=== PATIENT | male | born 1975 | race Caucasian/White ===

== ENCOUNTER 2017-01-04 20:00 | Inpatient (IN) | payer OTHER ==
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
--- NOTE | ~2017-01-04 | PN ---
Unit #: [id number] #: [id number] Patient: MARISSA SUTTON [id number] [facility] [address] [place] [address] [id number] MR#: [id number] NAME: MARISSA SUTTON ROOM: P176 Age: 41 Sex: M Admission Date: 01/05/2017 : 1975 Attending Physician: Moriah Lock M.D. Admitting Physician: Moriah Lock M.D. Primary Care Physician: Thad Farnsworth PROGRESS NOTES DATE 01/05/2017 DISCUSSION Mr. Sutton is a 41-year-old white male who was seen today and chart was reviewed and case was discussed with the staff. He has been anxious, withdrawn though has not shown any agitation, irritability or behavioral problems and has been cooperative with treatment recommendations and has been taking medications and tolerating them fairly well with no reported side effects. MENTAL STATUS EXAMINATION Young white male who was casually dressed with fair personal hygiene and appears to be in no acute distress or discomfort. He was awake and alert with impaired attention and concentration. His mood was anxious with congruent affect. His speech is slow and restricted in content. He denies any suicidal or homicidal ideations and also denies any auditory or visual hallucinations. His insight and judgement remains slightly impaired. TREATMENT PLAN 1. Will continue on his current medications and treatment protocol. Will monitor his response to the medications and make further adjustments as needed. 2. Will continue to follow up. Dictated by... Michael Connolly/eloisa TD: 01/06/2017 22:59 JOB #: [id number] Unit #: [id number] #: [id number] Patient: MARISSA SUTTON PROGRESS NOTES Page 1 of 1 X Moriah Lock MD PROGRESS NOTE
--- NOTE | ~2017-01-04 | PN ---
Unit #: [id number] #: [id number] Patient: MARISSA SUTTON [id number] [facility] [address] [place] [address] [id number] I MR#: [id number] NAME: MARISSA SUTTON ROOM: P176 Age: 41 Sex: M Admission Date: 01/05/2017 : 1975 Attending Physician: Moriah Lock M.D. Admitting Physician: Moriah Lock M.D. Primary Care Physician: Thad FarnsworthCE PROGRESS NOTES DATE January 08, 2017 DISCUSSION Mr. Sutton is a 41-year-old white male, who was seen today and chart was reviewed and the case was discussed with the staff. He reports not feeling good and still having anxiety, restlessness, shaking tremors. Meanwhile, he has been taking the medications and tolerating them fairly well with no reported side effects. MENTAL STATUS EXAMINATION Young white male, who was casually dressed with fair personal hygiene and appears to be in no acute distress or discomfort. He was awake and alert on interaction with intact orientation. His mood is anxious with a congruent affect. He denies any suicidal or homicidal ideations, and also denies any auditory or visual hallucinations. His insight and judgment remain slightly impaired. TREATMENT PLAN 1. A We will continue him on his current medications and treatment protocol, and will monitor his response to the medications, and make further adjustments as needed. 2. We will continue to followup. Dictated by... Michael Connolly/edgar TD: 01/09/2017 04:58 JOB #: [id number] Unit #: [id number] #: [id number] Patient: MARISSA SUTTON PROGRESS NOTES Page 1 of 1 X Moriah Lock MD PROGRESS NOTE
--- NOTE | ~2017-01-04 | DS ---
Unit #: [id number] #: [id number] [facility]: [facility] [id number] [facility] [address] [place] [address] [id number] I MR#: [id number] NAME: MARISSA SUTTON ROOM: P176 Age: 41 Sex: M Admission Date: 01/05/2017 : 1975 Discharge Date: 01/08/2017 Attending Physician: Moriah Lock M.D. Primary Care Physician: Shavon FarnsworthREloisa DISCHARGE SUMMARY IDENTIFYING DATA Mr. Sutton is a 41-year-old white male with history of mood disorder, who was self-referred to the hospital. DISCHARGE DIAGNOSES Psychiatric: Alcohol dependence, moderate and acute withdrawals; alcohol-induced mood disorder. Medical: Gastroesophageal reflux disease. Stressors: Mild psychosocial stressors. HISTORY OF PRESENT ILLNESS Please see initial psychiatric evaluation for details. PAST PSYCHIATRIC HISTORY Please see initial psychiatric evaluation for details. PAST MEDICAL HISTORY Please see initial psychiatric evaluation for details. HOSPITAL COURSE The patient was admitted to the adult chemical dependency and psychiatric unit at [facility] migue [facility] and was oriented to the hospital environment. Routine p.r.n. medications were initiated, and he was started on the detox protocol and was also started back on his home medication including his Zoloft and was closely monitored. He was taking the medications regularly and was tolerating them fairly well, and was able to show a decent therapeutic response with resolution of the detox symptoms and was denying any thoughts of wanting to hurt himself or anyone else, and was not seen to be a candidate for involuntary psychiatric hospitalization and as such, it was decided that he will be discharged home and will continue treatment on an outpatient basis. DISCHARGE CONDITION Stable. PROGNOSIS Fair. Dictated by... Moriah Lock M.D. IAA/modl Unit #: [id number] #: [id number] Patient: MARISSA SUTTON TD: 02/17/2017 14:18 JOB #: [id number] DISCHARGE SUMMARY Page 1 of 1 X Moriah Lock MD X DISCHARGE SUMMARY
--- NOTE | ~2017-01-04 | CO ---
Unit #: [id number] #: [id number] Patient: MARISSA MATA [id number] [place] [address] [id number] I MR#: [id number] NAME: MARISSA MATA ROOM: [facility] Age: 41 Sex: M Admission Date: 01/05/2017 : 1975 Attending Physician: Moriah Lock M.D. Primary Care Physician: Kassie Mack A.P.R.N. Consultation Date: 01/05/2017 CONSULTATION REPORT SUBJECTIVE We were asked to see Marissa about an abrasion along his forehead and injury to his right toe. He was examined during his admission H and P, and these areas were described. Please see H and P dated 01/05/2017. Dictated by... Pallavi Martin P.A.-C. for Michael Harper/sweta TD: 01/07/2017 18:18 JOB #: [id number] CONSULTATION REPORT Page 1 of 1 X Pallavi Martin CONSULTATION REPORT
--- NOTE | ~2017-01-04 | PN ---
Unit #: [id number] #: [id number] Patient: MARISSA SUTTON [id number] [facility] [address] [place] [address] [id number] MR#: [id number] NAME: MARISSA SUTTON ROOM: 76 Age: 41 Sex: M Admission Date: 01/05/2017 : 1975 Attending Physician: Moriah Lock M.D. Admitting Physician: Moriah Lock M.D. Primary Care Physician: Thad Farnsworth PROGRESS NOTES DATE January 07, 2017 DISCUSSION Mr. Sutton is a 41-year-old, white male who was seen today and chart was reviewed. His case was discussed with the staff. He has been anxious, withdrawn, and rather seclusive to himself. Meanwhile, he has been cooperative with treatment recommendations and has been taking medications and tolerating them fairly well with no reported side effects ____ distress or discomfort detox. MENTAL STATUS EXAMINATION Young white male who was casually dressed with marginal personal hygiene and appears to be in no distress or discomfort. He was awake and alert on interaction with intact orientation. His mood was anxious with a congruent affect. Speech is restricted in content. Reports having auditory and visual hallucinations. His insight and judgement remain significantly impaired. TREATMENT PLAN 1. Continue with his current medications and treatment protocol as well as the detox medications. Will monitor his response and make further adjustments as needed. 2. We will continue to follow up. Dictated by... Michael Connolly/josé luis TD: 01/08/2017 12:12 JOB #: [id number] Unit #: [id number] #: [id number] Patient: MARISSA SUTTON PROGRESS NOTES Page 1 of 1 X Moriah Lock MD PROGRESS NOTE
--- NOTE | ~2017-01-04 | HP ---
Unit #: [id number] #: [id number] Patient: MARISSA MATA [id number] [place] [address] [id number] I MR#: [id number] NAME: MARISSA MATA ROOM: P176 Age: 41 Sex: M Admission Date: 01/05/2017 : 1975 Attending Physician: Moriah Lock M.D. Admitting Physician: Moriah Lock M.D. Primary Care Physician: Kassie Mack A.P.R.N. HISTORY AND PHYSICAL HISTORY OF PRESENT ILLNESS Marissa is a 41 year old admitted to [facility] with his polysubstance abuse which includes methamphetamine and alcohol. PAST MEDICAL HISTORY 1. History of illicit substance abuse to include meth. 2. High blood pressure. 3. History of withdrawal seizures. PAST SURGICAL HISTORY Nothing reported. ALLERGIES No known drug allergies. SOCIAL HISTORY He smokes two packs per day. Drinks at least a case a beer on a daily basis. Admits to a history of illicit substance abuse to include snorting methamphetamine. FAMILY HISTORY Medically noncontributory. REVIEW OF SYSTEMS CONSTITUTIONAL: No fever or chills. HEENT: Denies any sore throat, ear pain or runny nose. CARDIOVASCULAR: Denies chest pain, irregular heart rhythm or palpitations. CHEST: Denies shortness of breath or cough. No hemoptysis. GASTROINTESTINAL: Denies nausea, vomiting, diarrhea or chronic constipation. ENDOCRINE: Denies history of increased thirst or urination. No recent significant weight loss or gain. GENITOURINARY: Denies dysuria, frequency, or hematuria. SKIN: Denies any rashes. HEMATOLOGIC: Denies history of increased bleeding or bruising. MUSCULOSKELETAL: Denies any hot, swollen joints. No generalized muscle pain. NEUROLOGIC: Denies problems with vision or speech. No frequent, severe headaches. No numbness, tingling or weakness in any extremities. Denies loss of bladder or bowel control. CURRENT MEDICATIONS Unit #: [id number] #: [id number] Patient: MARISSA MATA Detox protocol PHYSICAL EXAMINATION GENERAL: Alert, well-nourished, in no apparent distress. VITAL SIGNS: Blood pressure 130/84, heart rate 100, respirations 16, temperature 98.6. WEIGHT: 182 pounds. HEIGHT: 5'10". SKIN: Warm and dry without rash. He has a small approximately quarter size abrasion mid forehead. The area is scabbed over. He also has some swelling and bruising about his great toe. X-ray is negative for fracture or dislocation. HEENT: Normocephalic. TMs not viewed. Oral and nasal passages clear. Conjunctivae clear. Pupils equal, round and reactive to light and accommodation. Extraocular movements intact. NECK: Supple without lymphadenopathy or thyromegaly. HEART: Regular rate and rhythm without murmur. LUNGS: Clear. ABDOMEN: Soft, nontender. : Not done. EXTREMITIES: No evidence of cyanosis, clubbing or edema. Moves all extremities without focal deficit. NEUROLOGICAL: Grossly within normal limits. Cranial Nerves: II: Visual thorpe are intact. III, IV AND : Extraocular movements are intact. Pupils are equal, round and reactive to light. V: Facial sensation is grossly normal. VII: Facial movements and expression are normal. VIII: Auditory acuity grossly intact. IX, X: Uvula is midline. Phonation is normal. XI: Patient shrugs shoulders and turns head normally. XII: Tongue protrudes in the midline. Sensory and Motor Function: Sensory and motor sensation is grossly normal. Motor: moves all extremities well. Coordination: Gait is normal. Deep Tendon Reflexes: Intact. IMPRESSION Psychiatric admission RECOMMENDATIONS PSYCHIATRIC: Per psychiatrist. MEDICAL: I see no contraindications to participating in facility's activities. MEDICAL PROGNOSIS Good. MEDICAL CONDITION Stable. Dictated by... Pallavi Martin P.A.-C. for Michael Harper/rola Unit #: [id number] #: [id number] Patient: MARISSA MATA TD: 01/05/2017 23:56 JOB #: [id number] HISTORY AND PHYSICAL Page 1 of 1 X Pallavi Martin HISTORY AND PHYSICAL
[~2017-01-04 20:00] MED LIST: AMITRYPTYLINE PO; CELEXA PO; DESYREL50 MG PO; DICLOFENAC PO; NEURONTIN PO; NIFEDIPINE ER30 MG PO; NO MEDICATIONS; NORCO1 TAB 10/3 PO; NORVASC PO; PANTOPRAZOLE SO40 MG PO; PRILOSEC PO; TRAMADOL PO; TYLENOL #3 PO; VALTREX500 MG PO; VOLTAREN75 MG PO; ZOFRAN PO; ZOLOFT100 MG PO
== END 2017-01-08 14:31 | DRG 897 ==
LOC: P1E 01-05 11:29
PROC: HZ2ZZZZ Detoxification Services for Substance Abuse Treatment (ICD-10-PCS; principal; 2017-01-05)
DX: F10.239 Alcohol dependence with withdrawal, unspecified (principal); F14.20 Cocaine dependence, uncomplicated; R45.851 Suicidal ideations; F33.1 Major depressive disorder, recurrent, moderate; F15.20 Other stimulant dependence, uncomplicated; I10 Essential (primary) hypertension; F17.210 Nicotine dependence, cigarettes, uncomplicated; Z56.0 Unemployment, unspecified; Z91.14 Patient's other noncompliance with medication regimen

== ENCOUNTER 2017-01-04 23:00 | Emergency (ER) | payer OTHER ==
--- NOTE | ~2017-01-04 | CT71 ---
[facility] A Service of [facility] RADIOLOGY TEXT RESULTS PATIENT: MARISSA MATA LOCATION: [facility] : [birth year] UNIT #: [id number] AGE: [address]: Jorge Garcia MD SEX: M ORDER DR: [id number] [address] [place], [place] [address] [id number] E MR#: [id number] Acc #: [id number] NAME: MARISSA MATA : 1975 SEX: M STUDY DATE/TIME: 01/05/2017 0:33 UNIT: [facility] ROOM: STUDY DESCRIPTION: CT Head Wo Contrast Attending Physician: Jorge Garcia M.D. Ordering Physician: Netta Clark M.D. Primary Care Physician: Kassie Mack A.P.R.N. MEDICAL IMAGING REPORT This report is preliminary unless electronic signature is present EXAM CT scan of the head without contrast INDICTIONS Trauma to forehead from concrete, injury happened last night now has persistent headache. . Comparison made with 10/13/15 FINDINGS TECHNIQUE Axial noncontrast images were obtained from the skull base to the vertex. This CT exam was performed with one or more of the following radiation dose reduction techniques: automatic exposure control, adjustment of mA and/or kV according to patient size, and iterative reconstruction. FINDINGS Ventricular size and configuration are normal. There is no evidence of acute infarct or hemorrhage. There are no extraaxial fluid collections. No mass lesion or mass effect is seen. There are no skull fractures. IMPRESSION Normal noncontrast head CT. Dictated by... Seth Malagon M.D. [facility] A Service of [facility] RADIOLOGY TEXT RESULTS PATIENT: MARISSA MATA LOCATION: [facility] : 79 UNIT #: [id number] AGE: [address]: Jorge Garcia MD SEX: M ORDER DR: THIS IS AN ELECTRONICALLY VERIFIED REPORT Seth Malagon M.D. at 01/05/2017 12:38 PM Bozena TD: 01/05/2017 09:41 JOB #: [id number] MEDICAL IMAGING REPORT Page 1 of 1 COPY
--- NOTE | ~2017-01-04 | CR127 ---
[facility] A Service of [facility] RADIOLOGY TEXT RESULTS PATIENT: MARISSA MATA LOCATION: [facility] : 77 UNIT #: [id number] AGE: [address]: Jorge Garcia MD SEX: M ORDER DR: [id number] [facility] [address] [facility]. [place], [place] [address] [id number] E MR#: [id number] Acc #: [id number] NAME: MARISSA MATA : 1975 SEX: M STUDY DATE/TIME: 01/05/2017 0:22 UNIT: [facility] ROOM: STUDY DESCRIPTION: CR Foot Complete Min 3 View Rt Attending Physician: Jorge Garcia M.D. Ordering Physician: Netta Clark M.D. Primary Care Physician: Kassie Mack A.P.R.N. MEDICAL IMAGING REPORT This report is preliminary unless electronic signature is present EXAM Right foot HISTORY Foot pain after kicking garage today. FINDINGS The tarsal, metatarsal, and phalangeal elements are all anatomically normal in position and alignment. There are no articular defects. No fractures or radiopaque foreign bodies in the soft tissues are apparent. IMPRESSION Normal foot. Dictated by... Seth Malagon M.D. THIS IS AN ELECTRONICALLY VERIFIED REPORT Seth Malagon M.D. at 01/05/2017 12:38 PM ALBINO/karen TD: 01/05/2017 09:35 JOB #: [id number] MEDICAL IMAGING REPORT Page 1 of 1 COPY
[2017-01-05 01:00] LABS: BASOPHIL% 0.3 % (0-2.5); EOSINOPHIL# 0.1 X10e3 (0-0.7); EOSINOPHIL% 1.4 % (0.0-7.0); HEMATOCRIT 49.4 % (38.0-50.0); HEMOGLOBIN 16.2 gm/dL (13.0-16.0); LYMPHOCYTE% 35.8 % (17.0-45.0); MEAN CELL VOLUME 96.4 FL (83-96); MEAN CORPUSCULAR HEMOGLOBIN 31.7 PG (28-34); MEAN CORPUSCULAR HGB CONC 32.8 g/dL (30-36); MEAN PLATELET VOLUME 6.8 FL (6.5-11.5); MONOCYTE# 0.5 X10e3 (0-1.0); MONOCYTE% 5.7 % (3.0-12.0); NEUTROPHIL# 4.7 X10e3 (1.5-7.1); NEUTROPHIL% 56.8 % (40-75); PLATELET COUNT 299 X10e3 (140-420); RED BLOOD COUNT 5.12 X10e (3.90-5.60); RED CELL DISTRIBUTION WIDTH 15.9 % (11.0-15.5); WHITE BLOOD COUNT 8.3 X10e3 (4.0-10.5)
[2017-01-05 01:01] LABS: DIFF IND NO
[2017-01-05 01:20] LABS: ALBUMIN SERUM 4.3 g/dL (3.5-5.0); BILIRUBIN, DIRECT 0.1 mg/dL (0.0-0.2); BILIRUBIN,TOTAL 1.1 mg/dL (0.2-2.0); CALCIUM SERUM 8.4 mg/dL (8.4-10.2); CREATININE SERUM 0.6 mg/dL (0.6-1.4); GLOM FILT RATE Estimated 126.7 mL/min (>60); POTASSIUM 3.8 mmol/L (3.5-5.1); PROTEIN TOTAL SERUM 6.9 g/dL (6.0-8.3)
[2017-01-05 05:34] LABS: AMPHETAMINE NEG (NEG); BARBITURATES NEG (NEG); BENZODIAZEPINES NEG (NEG); COCAINE NEG (NEG); MARIJUANA POS (NEG); OPIATES NEG (NEG); TRICYCLIC ANTIDEPRESSANTS NEG (NEG); U METHADONE NEG (NEG)
== END 2017-01-05 10:26 | disposition short-term general hospital (02) ==
LOC: CED 23:00
PROVIDERS: Student in an Organized Health Care Education/Training Program
DX: S09.90XA Unspecified injury of head, initial encounter (principal); F10.129 Alcohol abuse with intoxication, unspecified; S90.31XA Contusion of right foot, initial encounter; F31.9 Bipolar disorder, unspecified; B19.20 Unspecified viral hepatitis C without hepatic coma; F17.210 Nicotine dependence, cigarettes, uncomplicated; I10 Essential (primary) hypertension; F20.9 Schizophrenia, unspecified; Z79.899 Other long term (current) drug therapy; X58.XXXA Exposure to other specified factors, initial encounter
CPT/HCPCS: 36415; 70450; 73630; 80048; 80076; 80307; 85025; 96360; 99285; G0480

== ENCOUNTER 2017-02-22 19:53 | Emergency (ER) | payer OTHER ==
--- NOTE | ~2017-02-22 | CT71 ---
[facility] A Service of [facility] RADIOLOGY TEXT RESULTS PATIENT: MARISSA MATA LOCATION: [facility] : 79 UNIT #: [id number] AGE: [address]: Alex Hayden MD SEX: M ORDER DR: [id number] [facility] [address] [facility]. [place], [place] [address] [id number] E MR#: [id number] Acc #: [id number] NAME: MARISSA MATA : 1975 SEX: M STUDY DATE/TIME: 02/22/2017 21:48 UNIT: [facility] ROOM: STUDY DESCRIPTION: CT Head Wo Contrast Attending Physician: Jorge Garcia M.D. Ordering Physician: Jorge Garcia M.D. Primary Care Physician: Kassie Mack A.P.R.N. MEDICAL IMAGING REPORT This report is preliminary unless electronic signature is present EXAM Noncontrast CT head. Date: 02/22/2017 HISTORY 41-year-old male with seizure. Headache today. Hypertension. COMPARISON Noncontrast CT head 01/05/2017. This CT exam was performed with one or more of the following radiation dose reduction techniques: automatic exposure control, adjustment of mA and/or kV according to patient size, and iterative reconstruction. FINDINGS No acute intracranial hemorrhage, mass lesion, mass effect, midline shift is seen. No CT evidence of acute or evolving infarct. Ventricular configuration is within normal limits. Paranasal sinuses and mastoid air cells are clear. 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 IMPRESSION Normal noncontrast CT head. Dictated by... Rohcelle Perez M.D. THIS IS AN ELECTRONICALLY VERIFIED REPORT Rochelle Perez M.D. at 02/23/2017 9:59 PM ELBA/maddie TD: 02/23/2017 08:49 [facility] A Service of [facility] RADIOLOGY TEXT RESULTS PATIENT: MARISSA MATA LOCATION: [facility] : 77 UNIT #: [id number] AGE: [address]: Alex Hayden MD SEX: M ORDER DR: JOB #: [id number] MEDICAL IMAGING REPORT Page 1 of 1 COPY
--- NOTE | ~2017-02-22 | EKG ---
PATIENT: MARISSA MATA UNIT #: [id number] Ventricular Rate: 95 BPM Atrial Rate: 95 BPM P-R Interval: 138 ms QRS Duration: 92 ms Q-T Interval: 352 ms QTC Calculation(Bezet): 442 ms P [place]: 62 degrees Calculated R [place]: 47 degrees Calculated T [place]: 53 degrees Diagnosis Line: Normal sinus rhythm Diagnosis Line: Normal ECG Diagnosis Line: When compared with ECG of 25-JUL-2016 13:41, Diagnosis Line: No significant change was found Diagnosis Line: Confirmed by JOYCE SMITH MD ([id number]) on 02/25/2017 Diagnosis Line: 7:53:00 AM INTERPRETING MD: LUIS RODRIGUEZ
[2017-02-22 20:57] LABS: BASOPHIL% 0.4 % (0-2.5); EOSINOPHIL# 0.3 X10e3 (0-0.7); EOSINOPHIL% 2.8 % (0.0-7.0); HEMATOCRIT 43.8 % (38.0-50.0); HEMOGLOBIN 14.9 gm/dL (13.0-16.0); LYMPHOCYTE# 5.1 X10e3 (1.0-3.5); LYMPHOCYTE% 47.9 % (17.0-45.0); MEAN CELL VOLUME 91.9 FL (83-96); MEAN CORPUSCULAR HEMOGLOBIN 31.2 PG (28-34); MEAN CORPUSCULAR HGB CONC 33.9 g/dL (30-36); MEAN PLATELET VOLUME 6.6 FL (6.5-11.5); MONOCYTE# 0.6 X10e3 (0-1.0); NEUTROPHIL# 4.6 X10e3 (1.5-7.1); NEUTROPHIL% 42.9 % (40-75); PLATELET COUNT 307 X10e3 (140-420); RED BLOOD COUNT 4.77 X10e (3.90-5.60); RED CELL DISTRIBUTION WIDTH 13.9 % (11.0-15.5); WHITE BLOOD COUNT 10.7 X10e3 (4.0-10.5)
[2017-02-22 20:59] LABS: DIFF IND NO
[2017-02-22 21:10] LABS: POC - TROPONIN <0.05 ng/mL (<=0.05)
[2017-02-22 21:19] LABS: ALBUMIN SERUM 4.4 g/dL (3.5-5.0); BILIRUBIN,TOTAL 0.6 mg/dL (0.2-2.0); BUN/CREATININE RATIO 13.33; CALCIUM SERUM 8.8 mg/dL (8.4-10.2); CREATININE SERUM 0.6 mg/dL (0.6-1.4); GLOM FILT RATE Estimated 126.7 mL/min (>60); POTASSIUM 3.5 mmol/L (3.5-5.1); PROTEIN TOTAL SERUM 7.4 g/dL (6.0-8.3)
[2017-02-22 21:26] LABS: AMPHETAMINE NEG (NEG); BARBITURATES NEG (NEG); BENZODIAZEPINES NEG (NEG); COCAINE NEG (NEG); MARIJUANA NEG (NEG); OPIATES NEG (NEG); TRICYCLIC ANTIDEPRESSANTS NEG (NEG); U METHADONE NEG (NEG)
== END 2017-02-23 15:50 ==
LOC: CED 19:53
PROVIDERS: Emergency Medicine
DX: G40.909 Epilepsy, unspecified, not intractable, without status epilepticus (principal); F10.129 Alcohol abuse with intoxication, unspecified; F19.10 Other psychoactive substance abuse, uncomplicated; F17.200 Nicotine dependence, unspecified, uncomplicated
CPT/HCPCS: 36415; 70450; 80053; 80307; 82553; 84484; 85025; 93005; 96361; 96365; 96375; 99285; G0480; J1885; J1953; J2060

== ENCOUNTER 2017-02-23 01:00 | Inpatient (IN) | payer OTHER ==
[~2017-02-23] VITALS: Ht 172.7 cm; Wt 91.6 kg
--- NOTE | ~2017-02-23 | HP ---
Unit #: [id number] #: [id number] Patient: MARISSA MATA [id number] [facility] [address] [place] [address] [id number] I MR#: [id number] NAME: MARISSA MATA ROOM: [facility] Age: 42 Sex: M Admission Date: 02/23/2017 : 1975 Attending Physician: Moriah Lock M.D. Admitting Physician: Moriah Lock M.D. Primary Care Physician: Kassie Mack A.P.R.N. HISTORY AND PHYSICAL HISTORY OF PRESENT ILLNESS Marissa is a 42 year old admitted to [facility] because of his continued abuse of alcohol. He has had other admissions to this facility for the same. PAST MEDICAL HISTORY 1. Long history of illicit substance abuse to include methamphetamine. 2. History of alcohol abuse. 3. History of withdrawal seizures. 4. High blood pressure. PAST SURGICAL HISTORY Nothing reported. ALLERGIES No known drug allergies. SOCIAL HISTORY Smokes 2 packs per day. Drinks at least a case of beer on a daily basis. Has a history of illicit drug use, but denies anything currently. FAMILY HISTORY Medically noncontributory. REVIEW OF SYSTEMS CONSTITUTIONAL: No fever or chills. HEENT: Denies any sore throat, ear pain or runny nose. CARDIOVASCULAR: Denies chest pain, irregular heart rhythm or palpitations. CHEST: Denies shortness of breath or cough. No hemoptysis. GASTROINTESTINAL: Denies nausea, vomiting, diarrhea or chronic constipation. ENDOCRINE: Denies history of increased thirst or urination. No recent significant weight loss or gain. GENITOURINARY: Denies dysuria, frequency, or hematuria. SKIN: Denies any rashes. HEMATOLOGIC: Denies history of increased bleeding or bruising. MUSCULOSKELETAL: Denies any hot, swollen joints. No generalized muscle pain. NEUROLOGIC: Denies problems with vision or speech. No frequent, severe headaches. No numbness, tingling or weakness in any extremities. Denies loss of bladder or bowel control. CURRENT MEDICATIONS 1. Detox protocol. Unit #: [id number] #: [id number] Patient: MARISSA MATA 2. Norvasc 5 mg q. day. PHYSICAL EXAMINATION GENERAL: Alert, well nourished. No apparent distress. VITAL SIGNS: Blood pressure 115/88, heart rate 84, respirations 16, and temperature 98.6. WEIGHT: 202. HEIGHT: 5 feet 8 inches. SKIN: Warm and dry without rash or lesion. HEENT: Normocephalic. TMs not viewed. Oral and nasal passages clear. Conjunctivae clear. PERRLA. EOMs intact. NECK: Supple without lymphadenopathy or thyromegaly. HEART: Regular rate and rhythm without murmur. LUNGS: Clear. ABDOMEN: Soft, nontender. : Not done. EXTREMITIES: No evidence of cyanosis, clubbing or edema. Moves all without focal deficit. NEUROLOGICAL: Grossly within normal limits. Cranial Nerves: II: Visual thorpe are intact. III, IV AND : Extraocular movements are intact. Pupils are equal, round and reactive to light. V: Facial sensation is grossly normal. VII: Facial movements and expression are normal. VIII: Auditory acuity grossly intact. IX, X: Uvula is midline. Phonation is normal. XI: Patient shrugs shoulders and turns head normally. XII: Tongue protrudes in the midline. Sensory and Motor Function: Sensory and motor sensation is grossly normal. Motor: moves all extremities well. Coordination: Gait is normal. Deep Tendon Reflexes: Intact. IMPRESSION Psychiatric admission. RECOMMENDATIONS PSYCHIATRIC: Per psychiatrist. MEDICAL: I see no contraindication to participate in this facility's activities. MEDICAL PROGNOSIS Good. MEDICAL CONDITION Stable. Dictated by... Pallavi Martin P.A.-C. for Michael Harper/nafisa TD: 02/24/2017 11:56 JOB #: [id number] Unit #: [id number] #: [id number] Patient: MARISSA MATA HISTORY AND PHYSICAL Page 1 of 1 X Pallavi Martin HISTORY AND PHYSICAL
--- NOTE | ~2017-02-23 | PN ---
Unit #: [id number] #: [id number] Patient: MARISSA SUTTON [id number] [facility] [address] [place] [address] [id number] MR#: [id number] NAME: MARISSA SUTTON ROOM: [facility] Age: 42 Sex: M Admission Date: 02/23/2017 : 1975 Attending Physician: Moriah Lock M.D. Admitting Physician: Moriah Lock M.D. Primary Care Physician: Thad Farnsworth PROGRESS NOTES DATE 02/24/2017 DISCUSSION Mr. Sutton is a 42-year-old, white male who was seen today and chart was reviewed and case was discussed with the staff. He has been anxious, withdrawn and in distress and discomfort as he was laying in his bed and he reports not feeling good and appears to be going through some detox and also reports persistent depressive symptoms with feelings of hopelessness and helplessness. Meanwhile, he has been taking medications and tolerating them fairly well. MENTAL STATUS EXAM Young white male who was casually dressed with fair personal hygiene, appears to be in no acute distress or discomfort. He was awake and alert on interaction with intact orientation. His mood was anxious with congruent affect. He denies any suicidal or homicidal ideation. His insight and judgement remains slightly impaired. TREATMENT PLAN 1. We will continue him on his current medications and treatment protocol. We will monitor his response to the medication and make further adjustments as needed. 2. We will continue to follow up. Dictated by... Michael Connolly/rola TD: 02/24/2017 21:43 JOB #: [id number] Unit #: [id number] #: [id number] Patient: MARISSA SUTTON PROGRESS NOTES Page 1 of 1 X Moriah Lock MD X PROGRESS NOTE
--- NOTE | ~2017-02-23 | PN ---
Unit #: [id number] #: [id number] Patient: MARISSA SUTTON [id number] [facility] [address] [place] [address] [id number] MR#: [id number] NAME: MARISSA SUTTON ROOM: [facility] Age: 42 Sex: M Admission Date: 02/23/2017 : 1975 Attending Physician: Moriah Lock M.D. Admitting Physician: Moriah Lock M.D. Primary Care Physician: Thad Farnsworth PROGRESS NOTES DATE 02/25/2017 DISCUSSION Mr. Sutton is a 42-year-old white male who was seen today and chart was reviewed and case was discussed with the staff. He has been anxious, withdrawn and rather seclusive to himself though reports still having some auditory and visual hallucinations. Meanwhile, he has been taking medications and tolerating them fairly well with no reported side effects. MENTAL STATUS EXAMINATION Middle-aged white male who was casually dressed with fair personal hygiene and appears to be in no acute distress or discomfort. He was awake and alert on interaction with intact orientation. His mood was anxious with congruent affect. His speech is slow and goal-directed. He denies any suicidal or homicidal ideations. His insight and judgement remains slightly impaired. TREATMENT PLAN 1. We will continue on his current medications and treatment protocol. Will monitor his response to the medications and ____ as needed. 2. Will continue to follow up. Dictated by... Michael Connolly/eloisa TD: 02/25/2017 17:57 JOB #: [id number] Unit #: [id number] #: [id number] Patient: MARISSA SUTTON PROGRESS NOTES Page 1 of 1 X Moriah Lock MD PROGRESS NOTE
--- NOTE | ~2017-02-23 | DS ---
Unit #: [id number] #: [id number] Patient: MARISSA MATA [id number] [place] [address] [id number] I MR#: [id number] NAME: MARISSA MATA ROOM: 79 Age: 42 Sex: M Admission Date: 02/23/2017 : 1975 Discharge Date: 02/27/2017 Attending Physician: Moriah Lock M.D. Primary Care Physician: Shavon FarnsworthREloisa DISCHARGE SUMMARY IDENTIFICATION DATA Mr. Mata is a 42-year-old single white male who is a resident of [place], [place], and he is known to us from previous encounter and was recently discharged from my care and was self-referred to the hospital. Upon presentation, he stated "I have been drinking, and I have withdrawal seizures." DISCHARGE DIAGNOSES PSYCHIATRIC: Alcohol dependence, moderate, in acute withdrawal. Alcohol-induced mood disorder. (1) __ hypertension. History of withdrawal seizures. STRESSORS: Mild psychosocial stressors. HISTORY OF PRESENT ILLNESS Same as in initial psychiatric evaluation. PAST PSYCHIATRIC HISTORY Same as in initial psychiatric evaluation. PAST MEDICAL HISTORY Same as in initial psychiatric evaluation. HOSPITAL COURSE The patient was admitted to the adult chemical dependence unit at [facility] and was oriented to the hospital environment. Routine p.r.n. medications were initiated, and he was started back on his home medications. Medications were adjusted, and he was closely monitored. Alcohol detox protocol was initiated. However, he was still having some persistent auditory or visual hallucinations. Zyprexa was started at 10 mg at bedtime, and Zoloft was maintained with good tolerability and therapeutic response. However, it was decided that he will be started, and we will continue treatment on outpatient basis. DISCHARGE MEDICATIONS 1. Zyprexa 10 mg at bedtime for psychosis. 2. Zoloft 150 mg in the morning for depression. CONDITION AT DISCHARGE Stable. PROGNOSIS Fair. Unit #: [id number] #: [id number] Patient: MARISSA MATA Dictated by... Moriah Lock M.D. IAA/zairag TD: 02/27/2017 06:47 JOB #: [id number] DISCHARGE SUMMARY Page 1 of 1 X Moriah Lock MD DISCHARGE SUMMARY
--- NOTE | ~2017-02-23 | PA ---
Unit #: [id number] #: [id number] Patient: MARISSA SUTTON [id number] [facility] [place] [address] [id number] I MR#: [id number] NAME: MARISSA SUTTON ROOM: P179 Age: 42 Sex: M Admission Date: 02/23/2017 : 1975 Date of Assessment: 02/23/2017 Attending Physician: Moriah Lock M.D. Admitting Physician: Moriah Lock M.D. Primary Care Physician: Kassie Mack A.P.R.N. PSYCHIATRIC ASSESSMENT DATE OF SERVICE 02/23/2017. IDENTIFYING DATA Mr. Sutton is a 41-year-old single white male, who is a resident of [place], [place], and is known to us from previous encounter, was recently discharged from my care and was transferred back to us as a transfer from [facility] on a voluntary basis. CHIEF COMPLAINT "I've been drinking and I had withdrawal seizures." HISTORY OF PRESENT ILLNESS Mr. Sutton is a 41-year-old white male with history of alcohol dependence, mood disorder, who was taken to the emergency room after having withdrawal seizures and reports that he drank 13 to 14 beers earlier that day and initially upon presentation to the emergency room, he had a blood alcohol level of 0.218 and reports that he has been drinking 30 beers on daily basis and denies any other substance abuse. The patient does report increasing depression, anxiety, irritability, restlessness, significant consequences because of addiction and inability to function; however, he denied any suicidal ideations, intent, or plan. He was medically cleared and then transferred to us. SUBSTANCE ABUSE HISTORY The patient reports extensive history of substance abuse including cannabis, cocaine, and methamphetamine, though he reports alcohol to be his drug of choice and has been drinking since he was 17 years old and currently has been drinking 30 beers on daily basis. PAST PSYCHIATRIC HISTORY The patient has had history of multiple inpatient psychiatric and chemical dependency treatments including being at [facility], [facility], and review of the medical records indicate currently he is not active in any treatment program, is not seeing a psychiatrist, not taking any psychotropic medications. PAST MEDICAL HISTORY Hypertension and history of withdrawal seizures. ALLERGIES No known medication allergies. Unit #: [id number] #: [id number] Patient: MARISSA SUTTON PERSONAL AND SOCIAL HISTORY A 41-yea-old white male, who reports that he is single, unemployed, and essentially homeless and has poor social support system. MENTAL STATUS EXAMINATION Young white male who was casually dressed with fair personal hygiene, appears to be in no acute distress or discomfort. He was awake and alert on interaction with intact orientation to time, place, and person. His mood was anxious and depressed with a congruent affect. His speech was slow and restricted in content. His thought processes were disorganized with some looseness of associations. He denies any suicidal or homicidal ideations and also denies any auditory or visual hallucinations. His insight and judgment remain significantly impaired. DIAGNOSTIC IMPRESSION Psychiatric: Alcohol dependence, moderate and acute withdrawals; alcohol-induced mood disorder. Medical: Hypertension and history of withdrawal seizures. Stressors: Moderate psychosocial stressors. TREATMENT PLAN 1. The patient has presented with history of mood disorder and substance abuse and has been decompensating and will need inpatient hospitalization for detoxification, safety, and stabilization. We will start him back on his home medications. We will also initiate detox protocol. 2. Supportive therapy was provided to the patient. 3. Safe, structured, and nourishing environment will be provided. ESTIMATED LENGTH OF STAY 5 to 7 days. ABILITY TO HELP SELF Limited. WILLINGNESS TO HELP SELF The patient appears to be willing to help self. STRENGTHS 1. Communicative. 2. Cooperative. PROBLEMS 1. Chronic chemical dependency. 2. Chronic dysphoric symptoms. 3. Poor social support system. DISCHARGE CRITERIA This will be contingent upon the patient's ability to go through detox without having any significant withdrawal symptoms as well as his ability to stay safe to himself, particularly after discharge from the hospital. Dictated by... Michael Connolly/sweta TD: 02/24/2017 06:35 Unit #: [id number] #: [id number] Patient: MARISSA SUTTON JOB #: [id number] PSYCHIATRIC ASSESSMENT Page 1 of 1 X Moriah Lock MD X PSYCHIATRIC ASSESSMENT
--- NOTE | ~2017-02-23 | PN ---
Unit #: [id number] #: [id number] Patient: MARISSA SUTTON [id number] [facility] [address] [place] [address] [id number] I MR#: [id number] NAME: MARISSA SUTTON ROOM: [facility] Age: 42 Sex: M Admission Date: 02/23/2017 : 1975 Attending Physician: Moriah Lock M.D. Admitting Physician: Moriah Lock M.D. Primary Care Physician: Thad Farnsworth PROGRESS NOTES DATE OF SERVICE 02/26/2017 DISCUSSION Mr. Sutton is a 42-year-old white male who was seen today. Chart was reviewed and case was discussed with the staff. He has been anxious, withdrawn, and rather seclusive to himself. Meanwhile, he has been cooperative with the treatment recommendations and has been taking the medications and tolerating them fairly well with no reported side effects. MENTAL STATUS EXAMINATION Middle-aged white male who is casually dressed with fair personal hygiene, appears to be in no acute distress or discomfort. The patient was awake and alert on interaction with intact orientation. His mood is anxious with congruent affect. Speech is slow and goal-directed. He denies any suicidal or homicidal ideations and also denies any auditory or visual hallucinations. His insight and judgment remain slightly impaired. TREATMENT PLAN 1. We will continue him on his current medications and treatment protocol. We will monitor his response to the medications and make further adjustments as needed. 2. We will continue to follow up. Dictated by... Michael Connolly/nafisa TD: 02/26/2017 08:45 JOB #: [id number] Unit #: [id number] #: [id number] Patient: MARISSA SUTTON PROGRESS NOTES Page 1 of 1 X Moriah Lock MD PROGRESS NOTE
[2017-02-24 09:48] LABS: BASOPHIL% 0.4 % (0-2.5); EOSINOPHIL# 0.3 X10e3 (0-0.7); EOSINOPHIL% 3.9 % (0.0-7.0); HEMATOCRIT 43.4 % (38.0-50.0); HEMOGLOBIN 14.6 gm/dL (13.0-16.0); LYMPHOCYTE# 3.1 X10e3 (1.0-3.5); LYMPHOCYTE% 39.7 % (17.0-45.0); MEAN CELL VOLUME 93.3 FL (83-96); MEAN CORPUSCULAR HEMOGLOBIN 31.3 PG (28-34); MEAN CORPUSCULAR HGB CONC 33.6 g/dL (30-36); MONOCYTE# 0.5 X10e3 (0-1.0); MONOCYTE% 7.1 % (3.0-12.0); NEUTROPHIL# 3.8 X10e3 (1.5-7.1); NEUTROPHIL% 48.9 % (40-75); PLATELET COUNT 284 X10e3 (140-420); RED BLOOD COUNT 4.65 X10e (3.90-5.60); RED CELL DISTRIBUTION WIDTH 14.5 % (11.0-15.5); WHITE BLOOD COUNT 7.8 X10e3 (4.0-10.5)
[2017-02-24 09:56] LABS: DIFF IND NO
[2017-02-24 10:04] LABS: ALBUMIN SERUM 3.7 g/dL (3.5-5.0); BILIRUBIN,TOTAL 0.6 mg/dL (0.2-2.0); BUN/CREATININE RATIO 18.33; CALCIUM SERUM 8.9 mg/dL (8.4-10.2); CREATININE SERUM 0.6 mg/dL (0.6-1.4); GLOM FILT RATE Estimated 125.8 mL/min (>60); POTASSIUM 4.3 mmol/L (3.5-5.1)
[2017-02-25 12:37] LABS: URINE APPEARANCE CLEAR; URINE BILIRUBIN NEG (NEG); URINE BLOOD NEG (NEG); URINE COLOR DK YELLOW; URINE GLUCOSE NEG (NEG); URINE KETONE NEG (NEG); URINE LEUKOCYTE ESTERASE NEG (NEG); URINE NITRATE NEG (NEG); URINE PROTEIN NEG (NEG); URINE SPECIFIC GRAVITY 1.013 (1.003-1.035); URINE UROBILINOGEN 0.2 MG/DL (NEG)
[2017-02-25 12:52] LABS: AMPHETAMINE NEG (NEG); BARBITURATES NEG (NEG); BENZODIAZEPINES POS (NEG); COCAINE NEG (NEG); MARIJUANA NEG (NEG); OPIATES NEG (NEG); TRICYCLIC ANTIDEPRESSANTS NEG (NEG); U METHADONE NEG (NEG)
== END 2017-02-27 08:06 | DRG 897 ==
LOC: P1E 12:43
PROVIDERS: Psychiatry & Neurology Psychiatry
PROC: HZ2ZZZZ Detoxification Services for Substance Abuse Treatment (ICD-10-PCS; principal; 2017-02-23)
DX: F10.230 Alcohol dependence with withdrawal, uncomplicated (principal); F10.24 Alcohol dependence with alcohol-induced mood disorder; I10 Essential (primary) hypertension; Z59.0 Homelessness; F17.200 Nicotine dependence, unspecified, uncomplicated; Y90.7 Blood alcohol level of 200-239 mg/100 ml
CPT/HCPCS: 80053; 80307; 81003; 85025; 86592

== ENCOUNTER 2017-03-07 00:16 | Emergency (ER) | payer OTHER ==
[~2017-03-07] VITALS: Ht 172.7 cm; Wt 91.6 kg
[2017-03-07 02:07] LABS: BASOPHIL# 0.1 X10e3 (0-0.3); BASOPHIL% 0.6 % (0-2.5); EOSINOPHIL# 0.2 X10e3 (0-0.7); EOSINOPHIL% 1.8 % (0.0-7.0); LYMPHOCYTE# 3.9 X10e3 (1.0-3.5); LYMPHOCYTE% 36.7 % (17.0-45.0); MEAN CELL VOLUME 92.1 FL (83-96); MEAN CORPUSCULAR HEMOGLOBIN 31.6 PG (28-34); MEAN CORPUSCULAR HGB CONC 34.3 g/dL (30-36); MEAN PLATELET VOLUME 6.4 FL (6.5-11.5); MONOCYTE# 0.5 X10e3 (0-1.0); MONOCYTE% 5.2 % (3.0-12.0); NEUTROPHIL# 5.9 X10e3 (1.5-7.1); NEUTROPHIL% 55.7 % (40-75); PLATELET COUNT 341 X10e3 (140-420); RED BLOOD COUNT 4.45 X10e (3.90-5.60); RED CELL DISTRIBUTION WIDTH 14.5 % (11.0-15.5); WHITE BLOOD COUNT 10.5 X10e3 (4.0-10.5)
[2017-03-07 02:09] LABS: DIFF IND NO
[2017-03-07 02:24] LABS: AMPHETAMINE NEG (NEG); BARBITURATES NEG (NEG); BENZODIAZEPINES NEG (NEG); COCAINE NEG (NEG); MARIJUANA POS (NEG); OPIATES NEG (NEG); TRICYCLIC ANTIDEPRESSANTS NEG (NEG); U METHADONE NEG (NEG)
[2017-03-07 02:40] LABS: ALBUMIN SERUM 4.2 g/dL (3.5-5.0); BILIRUBIN, DIRECT 0.1 mg/dL (0.0-0.2); BILIRUBIN,INDIRECT 0.5 mg/dL (0.0-0.9); BILIRUBIN,TOTAL 0.6 mg/dL (0.2-2.0); BUN/CREATININE RATIO 11.25; CALCIUM SERUM 8.6 mg/dL (8.4-10.2); CREATININE SERUM 0.8 mg/dL (0.6-1.4); GLOM FILT RATE Estimated 111.8 mL/min (>60); POTASSIUM 4.1 mmol/L (3.5-5.1); PROTEIN TOTAL SERUM 7.3 g/dL (6.0-8.3)
== END 2017-03-07 05:20 | disposition home or self-care (01) ==
LOC: CED 00:16
PROVIDERS: Emergency Medicine
DX: F10.288 Alcohol dependence with other alcohol-induced disorder (principal); G40.89 Other seizures; K21.9 Gastro-esophageal reflux disease without esophagitis; I10 Essential (primary) hypertension; F31.9 Bipolar disorder, unspecified; F17.210 Nicotine dependence, cigarettes, uncomplicated; Z79.899 Other long term (current) drug therapy
CPT/HCPCS: 36415; 80048; 80076; 80307; 85025; 96365; 99284; G0480; J3411; J3475

== ENCOUNTER 2017-03-14 19:00 | Inpatient (IN) | payer OTHER ==
[~2017-03-14] VITALS: Ht 172.7 cm; Wt 93.0 kg
--- NOTE | ~2017-03-14 | PA ---
Unit #: [id number] #: [id number] Patient: MARISSA SUTTON [id number] [facility] [address] [place] [address] [id number] I MR#: [id number] NAME: MARISSA SUTTON ROOM: P184 Age: 42 Sex: M Admission Date: 03/14/2017 : 1975 Date of Assessment: 03/15/2017 Attending Physician: Moriah Lock M.D. Admitting Physician: Moriah Lock M.D. Primary Care Physician: Kassie Mack A.P.R.N. PSYCHIATRIC ASSESSMENT DATE OF SERVICE 03/15/2017. IDENTIFYING DATA Mr. Sutton is a 42-year-old, single, white male who is a resident of [place], [place], and was self-referred to the hospital on a voluntary basis. CHIEF COMPLAINT "Suicidal ideation and alcohol abuse." HISTORY OF PRESENT ILLNESS Mr. Sutton is a 42-year-old white male with dual diagnosis of mood disorder and substance abuse, who is known to me from previous multiple encounters and was recently discharged from my care couple of weeks ago and brought himself back to the hospital with blood alcohol level of 1.238 and reports had relapse on alcohol and does report increasing depression, suicidal ideations and stated drinking too much, drugging, "I have been drinking a whole lot. I get up at 7 in morning every day and drink until I cannot drink no more and took 4 Neurontin, cause I have prescribed them." He reports that he took one orally, and snorted. He stated that he drinks 30 beers today and he was up until the time he came to [facility] and has history of withdrawal seizures and delirium tremens and was started experiencing visual hallucination during assessment and stated that his mother called the police eventually because he was threatening to cut his throat with a fillet knife and states the police took the knife from him when they arrived and stated he is tired of living and reports an intent to kill himself by cutting his throat to shoot himself and does endorse increasing depression, anxiety, irritability, feelings of hopelessness and helplessness, and suicidal ideations with intent and plan. SUBSTANCE ABUSE HISTORY The patient does report history of alcohol, cannabis, cocaine, and amphetamine abuse, and currently alcohol has been his drug of choice and reports that he has been drinking 30 beers a day and has history of withdrawal seizures and delirium tremens. PAST PSYCHIATRIC HISTORY The patient has had history of multiple inpatient psychiatric hospitalizations at [facility] in addition to being at [facility] and review of the medical records indicate currently he is supposed to be on Zyprexa, Neurontin, Zoloft, though has been noncompliant with medication as such, has been decompensating. Unit #: [id number] #: [id number] Patient: MARISSA SUTTON PAST MEDICAL HISTORY The patient's medical history is significant for hypertension, history of withdrawal seizures, history of DTs, Raynaud disease. ALLERGIES No known medication allergies. PERSONAL AND SOCIAL HISTORY A 42-year-old white male who reports that he is single, unemployed, and lives at home with his mother and has fairly decent social support system. MENTAL STATUS EXAMINATION Middle-aged white male who was casually dressed with fair personal hygiene, appears to be in no acute distress or discomfort. He was awake and alert on interaction with intact orientation. His mood was anxious and depressed with a congruent affect. His speech was slow and goal directed. He reports having suicidal ideation, but denies any homicidal ideations, and also denies any auditory or visual hallucinations. His insight and judgment remain slightly impaired. DIAGNOSTIC IMPRESSION Psychiatric: Major depressive disorder, recurrent, moderate, without psychotic features; alcohol dependence, moderate and acute withdrawals; benzodiazepine abuse, moderate. Medical: History of withdrawal seizures, history of delirium tremens, Raynaud disease, hypertension. Stressors: Moderate psychosocial stressors. TREATMENT PLAN 1. The patient has presented with history of mood disorder and substance abuse and has been decompensating and will need inpatient hospitalization for detoxification and safety, and stabilization. We will start him back on his home medications. We will adjust the medications and monitor response. 2. Supportive therapy was provided to the patient. 3. Safe, structured, and nourishing environment will be reported. ESTIMATED LENGTH OF STAY 5 to 7 days. ABILITY TO HELP SELF Limited. WILLINGNESS TO HELP SELF The patient appears to be willing to help self. STRENGTHS 1. Communicative. 2. Cooperative. PROBLEMS 1. Chronic dysphoric symptoms. 2. Chronic chemical dependency. 3. Poor social support system. DISCHARGE CRITERIA This will be contingent upon the patient's ability to go through detox without having any significant withdrawal symptoms as well as his ability Unit #: [id number] #: [id number] Patient: MARISSA SUTTON to stay safe to himself, particularly after discharge from the hospital. Dictated by... Michael Connolly/sweta TD: 03/15/2017 19:45 JOB #: [id number] PSYCHIATRIC ASSESSMENT Page 1 of 1 X Moriah Lock MD X PSYCHIATRIC ASSESSMENT
--- NOTE | ~2017-03-14 | PN ---
Unit #: [id number] #: [id number] Patient: MARISSA SUTTON [id number] [facility] [address] [place] [address] [id number] MR#: [id number] NAME: MARISSA SUTTON ROOM: [facility] Age: 42 Sex: M Admission Date: 03/14/2017 : 1975 Attending Physician: Moriah Lock M.D. Admitting Physician: Moriah Lock M.D. Primary Care Physician: Thad Farnsworth PROGRESS NOTES DATE March 20, 2017 DISCUSSION Mr. Sutton is a 42-year-old white male, who was seen today and chart was reviewed and the case was discussed with the staff. He has been anxious, withdrawn, and rather seclusive to himself. He states that he got denied by [facility], as he was hoping to go to [facility] level of care. MENTAL STATUS EXAMINATION Middle-aged white male, who was casually dressed with fair personal hygiene and appears to be in no acute distress or discomfort. He was awake and alert on interaction with intact orientation. His mood is anxious with a congruent affect. He denies any suicidal or homicidal ideations. His insight and judgment remain slightly impaired. TREATMENT PLAN 1. We will continue him on his current medications and treatment protocol, and will monitor his response to the medications, and make further adjustments as needed. 2. We will continue to followup. Dictated by... Michael Connolly/edgar TD: 03/20/2017 08:31 JOB #: [id number] Unit #: [id number] #: [id number] Patient: MARISSA SUTTON PROGRESS NOTES Page 1 of 1 X Moriah Lock MD PROGRESS NOTE
--- NOTE | ~2017-03-14 | PN ---
Unit #: [id number] #: [id number] Patient: MARISSA SUTTON [id number] [facility] [address] [place] [address] [id number] MR#: [id number] NAME: MARISSA SUTTON ROOM: [facility] Age: 42 Sex: M Admission Date: 03/14/2017 : 1975 Attending Physician: Moriah Lock M.D. Admitting Physician: Moriah Lock M.D. Primary Care Physician: Thad Farnsworth PROGRESS NOTES DATE March 17, 2017 DISCUSSION Mr. Sutton is a 42-year-old white male, who was seen today and chart was reviewed and the case was discussed with the staff. He has been anxious, withdrawn, and rather seclusive to himself. Meanwhile, he has been cooperative with the treatment recommendations and he has been taking the medications and tolerating them fairly well with no reported side effects. MENTAL STATUS EXAMINATION Middle-aged white male, who was casually dressed with fair personal hygiene and appears to be in no acute distress or discomfort. He was awake with intact orientation. His mood is anxious and depressed with a congruent affect. He reports having suicidal ideations, and auditory hallucinations. His insight and judgment remain significantly impaired. TREATMENT PLAN 1. We will continue him on his current medications and treatment protocol, and will monitor his response to the medications, and make further adjustments as needed. 2. We will continue to followup. Dictated by... Michael Connolly/edgar TD: 03/17/2017 12:53 JOB #: [id number] Unit #: [id number] #: [id number] Patient: MARISSA SUTTON PROGRESS NOTES Page 1 of 1 X Moriah Lock MD PROGRESS NOTE
--- NOTE | ~2017-03-14 | PN ---
Unit #: [id number] #: [id number] Patient: MARISSA SUTTON [id number] [facility] [address] [place] [address] [id number] MR#: [id number] NAME: MARISSA SUTTON ROOM: [facility] Age: 42 Sex: M Admission Date: 03/14/2017 : 1975 Attending Physician: Moriah Lock M.D. Admitting Physician: Moriah Lock M.D. Primary Care Physician: Thad Farnsworth PROGRESS NOTES DATE OF SERVICE 03/18/2017 DISCUSSION Mr. Sutton is a 42-year-old white male who was seen today. Chart was reviewed and case was discussed with the staff. He has been anxious, withdrawn, and rather seclusive to himself. Meanwhile, he has been cooperative with the treatment recommendations and has been taking the medications and tolerating them fairly well with no reported side effects. MENTAL STATUS EXAMINATION Young white male who is casually dressed with fair personal hygiene, appears to be in no acute distress or discomfort. He was awake and alert on interaction with intact orientation. His mood is anxious with a congruent affect. Speech is slow and goal-directed. He reports having auditory or visual hallucinations. His insight and judgment remain slightly impaired. TREATMENT PLAN 1. We will continue him on his current medications and treatment protocol, and we will monitor his response to the medications and make further adjustments as needed. 2. We will continue to follow up. Dictated by... Michael Connolly/nafisa TD: 03/18/2017 11:47 JOB #: [id number] Unit #: [id number] #: [id number] Patient: MARISSA SUTTON PROGRESS NOTES Page 1 of 1 X Moriah Lock MD X PROGRESS NOTE
--- NOTE | ~2017-03-14 | PN ---
Unit #: [id number] #: [id number] Patient: MARISSA SUTTON [id number] [facility] [address] [place] [address] [id number] MR#: [id number] NAME: MARISSA SUTTON ROOM: [facility] Age: 42 Sex: M Admission Date: 03/14/2017 : 1975 Attending Physician: Moriah Lock M.D. Admitting Physician: Moriah Lock M.D. Primary Care Physician: Thad Farnsworth PROGRESS NOTES DATE 03/19/2017 DISCUSSION Mr. Sutton is a 42-year-old white male who was seen today and chart was reviewed and case was discussed with the staff. He has been anxious, withdrawn though has not shown any agitation, irritability and has been still reporting some persistent depression, anxiety and hallucinations though he has been taking the medications and tolerating them fairly well with no reported side effects. MENTAL STATUS EXAMINATION Middle-aged white male who was casually dressed with fair personal hygiene and appears to be in no acute distress or discomfort. He was awake and alert on interaction with intact orientation. His mood was anxious with congruent affect. He denies any suicidal or homicidal ideations and also denies any auditory or visual hallucinations. His insight and judgement remains slightly impaired. TREATMENT PLAN 1. Will continue on his current medications and treatment protocol. Will monitor his response to the medications and make further adjustments as needed. 2. Will continue to follow up. Dictated by... Michael Connolly/eloisa TD: 03/19/2017 17:55 JOB #: [id number] Unit #: [id number] #: [id number] Patient: MARISSA SUTTON PROGRESS NOTES Page 1 of 1 X Moriah Lock MD X PROGRESS NOTE
--- NOTE | ~2017-03-14 | PN ---
Unit #: [id number] #: [id number] Patient: MARISSA SUTTON [id number] [facility] [address] [place] [address] [id number] MR#: [id number] NAME: MARISSA SUTTON ROOM: [facility] Age: 42 Sex: M Admission Date: 03/14/2017 : 1975 Attending Physician: Moriah Lock M.D. Admitting Physician: Moriah Lock M.D. Primary Care Physician: Thad Farnsworth PROGRESS NOTES DATE March 16, 2017 DISCUSSION Mr. Sutton is a 42-year-old white male, who was seen today and chart was reviewed and the case was discussed with the staff. He has been anxious, withdrawn, and rather seclusive to himself. Meanwhile, he has been cooperative with the treatment recommendations and he has been taking the medications and tolerating them fairly well with no reported side effects. MENTAL STATUS EXAMINATION Middle-aged white male, who was casually dressed with fair personal hygiene and appears to be in no acute distress or discomfort. He was awake and alert on interaction with intact orientation. His mood is anxious and depressed with a congruent affect. His speech is slow and restricted in content. He reports having auditory hallucinations. His insight and judgment remain slightly impaired. TREATMENT PLAN 1. We will continue him on his current medications and treatment protocol, and will adjust the medication, and will increase the Zyprexa to 15 mg at bedtime, and will also give him Requip for restless legs. 2. We will continue to followup. Dictated by... Michael Connolly/edgar TD: 03/17/2017 05:56 JOB #: [id number] Unit #: [id number] #: [id number] Patient: MARISSA SUTTON PROGRESS NOTES Page 1 of 1 X Moriah Lock MD PROGRESS NOTE
--- NOTE | ~2017-03-14 | HP ---
Unit #: [id number] #: [id number] Patient: MARISSA MATA [id number] [facility] [address] [place] [address] [id number] I MR#: [id number] NAME: MARISSA MATA ROOM: [facility] Age: 42 Sex: M Admission Date: 03/14/2017 : 1975 Attending Physician: Moriah Lock M.D. Admitting Physician: Moriah Lock M.D. Primary Care Physician: Kassie Mack A.P.R.N. HISTORY AND PHYSICAL The patient is a 42-year-old male admitted to [facility] on 03/14/2017 to detox from alcohol. The patient had a recent admission on 02/23/2017 where a full history and physical was completed. That history and physical has been reviewed, no changes need to be made. Dictated by... Thad Kramer/rola TD: 03/16/2017 00:46 JOB #: [id number] HISTORY AND PHYSICAL Page 1 of 1 X YUNI KENNY APRN HISTORY AND PHYSICAL
--- NOTE | ~2017-03-14 | DS ---
Unit #: [id number] #: [id number] [facility]: [facility] [id number] [facility] [place] [id number] MR#: [id number] NAME: MARISSA SUTTON ROOM: [facility] Age: 42 Sex: M Admission Date: 03/14/2017 : 1975 Discharge Date: 03/21/2017 Attending Physician: Moriah Lock M.D. Primary Care Physician: Kassie Mack A.P.R.N. DISCHARGE SUMMARY IDENTIFYING DATA Mr. Sutton is a 42-year-old single white male who is a resident of [place], [place] and is known to us from previous encounter and was self-referred to the hospital on a voluntary basis. HISTORY OF PRESENT ILLNESS Please see initial psychiatric evaluation. PAST PSYCHIATRIC HISTORY Please see initial psychiatric evaluation. PAST MEDICAL HISTORY Please see initial psychiatric evaluation. HOSPITAL COURSE The patient admitted to the adult psychiatric and chemical dependence unit at [facility] and was oriented to the hospital environment. Routine p.r.n. medications were initiated and he was started back on his home medications and alcohol detox protocol was initiated. However, he was seen to be anxious, restless and was complaining of persistent depression, auditory hallucinations and p.r.n. Thorazine at times had to be given. He was, however, calm and cooperative with treatment recommendations and was taking medications regularly and was tolerating them fairly well and was able to come out of the detox without any complications and was willing to continue treatment on outpatient basis and it was decided that he will be discharged home. Will continue treatment on outpatient basis. DISCHARGE DIAGNOSES PSYCHIATRIC: 1. Major depressive disorder, recurrent, moderate, without psychotic features. 2. Alcohol dependence, moderate in acute withdrawal. 3. Benzodiazepine abuse, moderate. MEDICAL: 1. History of withdrawal seizures. 2. History of delirium tremens. 3. Raynaud disease. 4. Hypertension. STRESSORS: Mild psychosocial stressors. Unit #: [id number] #: [id number] Patient: MARISSA SUTTON DISCHARGE MEDICATIONS 1. Zoloft 150 mg daily for depression. 2. Zyprexa 15 mg at bedtime for psychosis. CONDITION AT DISCHARGE Stable. PROGNOSIS Fair. Dictated by... IrfMichael Gardner/eloisa TD: 03/21/2017 22:26 JOB #: [id number] DISCHARGE SUMMARY Page 1 of 1 X Moriah Lock MD X DISCHARGE SUMMARY
== END 2017-03-21 10:15 | disposition home or self-care (01) | DRG 885 ==
LOC: P1E 22:08
PROC: HZ2ZZZZ Detoxification Services for Substance Abuse Treatment (ICD-10-PCS; principal; 2017-03-14)
DX: F33.1 Major depressive disorder, recurrent, moderate (principal); F13.20 Sedative, hypnotic or anxiolytic dependence, uncomplicated; I10 Essential (primary) hypertension; F10.239 Alcohol dependence with withdrawal, unspecified; I73.00 Raynaud's syndrome without gangrene

== ENCOUNTER 2017-04-05 18:53 | Emergency (ER) | payer OTHER ==
[2017-04-05] MEDS ORDERED: ZYPREXA10 MG PO (18:55)
[2017-04-05 19:53] LABS: BASOPHIL# 0.1 X10e3 (0-0.3); BASOPHIL% 0.7 % (0-2.5); EOSINOPHIL# 0.5 X10e3 (0-0.7); EOSINOPHIL% 3.7 % (0.0-7.0); HEMATOCRIT 42.3 % (38.0-50.0); HEMOGLOBIN 14.6 gm/dL (13.0-16.0); LYMPHOCYTE# 3.9 X10e3 (1.0-3.5); LYMPHOCYTE% 30.3 % (17.0-45.0); MEAN CELL VOLUME 92.7 FL (83-96); MEAN CORPUSCULAR HGB CONC 34.5 g/dL (30-36); MONOCYTE% 7.7 % (3.0-12.0); NEUTROPHIL# 7.4 X10e3 (1.5-7.1); NEUTROPHIL% 57.6 % (40-75); PLATELET COUNT 360 X10e3 (140-420); RED BLOOD COUNT 4.56 X10e (3.90-5.60); RED CELL DISTRIBUTION WIDTH 15.1 % (11.0-15.5); WHITE BLOOD COUNT 12.9 X10e3 (4.0-10.5)
[2017-04-05 19:54] LABS: DIFF IND NO
[2017-04-05 20:13] LABS: ACETAMINOPHEN <10 ug/mL; ALBUMIN SERUM 4.7 g/dL (3.5-5.0); ALKALINE PHOSPHATASE 117 U/L (32-92); ALT (SGPT) 31 U/L (10-40); AST (SGOT) 30 U/L (10-42); BILIRUBIN, DIRECT 0.1 mg/dL (0.0-0.2); BILIRUBIN,INDIRECT 0.5 mg/dL (0.0-0.9); BILIRUBIN,TOTAL 0.6 mg/dL (0.2-2.0); BLOOD UREA NITROGEN 11 mg/dL (9-23); BUN/CREATININE RATIO 13.75; CALCIUM SERUM 8.8 mg/dL (8.4-10.2); CARBON DIOXIDE 20 mmol/L (22-31); CHLORIDE 98 mmol/L (100-111); CREATININE SERUM 0.8 mg/dL (0.6-1.4); GLOM FILT RATE Estimated 111.8 mL/min (>60); GLUCOSE FASTING 97 mg/dL (70-110); POTASSIUM 3.6 mmol/L (3.5-5.1); PROTEIN TOTAL SERUM 7.9 g/dL (6.0-8.3); SODIUM 130 mmol/L (135-145)
[2017-04-05 20:15] LABS: ALCOHOL BLOOD 196 mg/dL (0)
[2017-04-05 20:19] LABS: AMPHETAMINE POS (NEG); BARBITURATES NEG (NEG); BENZODIAZEPINES NEG (NEG); COCAINE NEG (NEG); MARIJUANA POS (NEG); OPIATES NEG (NEG); TRICYCLIC ANTIDEPRESSANTS NEG (NEG); U METHADONE NEG (NEG)
== END 2017-04-06 05:30 | disposition short-term general hospital (02) ==
LOC: CED 18:53
PROVIDERS: Emergency Medicine
DX: R45.851 Suicidal ideations (principal); F10.10 Alcohol abuse, uncomplicated; F15.10 Other stimulant abuse, uncomplicated; Z79.899 Other long term (current) drug therapy
CPT/HCPCS: 36415; 80048; 80076; 80307; 85025; 99285; G0480

== ENCOUNTER 2017-04-05 20:00 | Inpatient (IN) | payer OTHER ==
[~2017-04-05] VITALS: Ht 172.7 cm; Wt 93.0 kg
--- NOTE | ~2017-04-05 | PN ---
Unit #: [id number] #: [id number] Patient: MARISSA SUTTON [id number] [facility] [address] [place] [address] [id number] MR#: [id number] NAME: MARISSA SUTTON ROOM: [facility] Age: 42 Sex: M Admission Date: 04/06/2017 : 1975 Attending Physician: Moriah Lock M.D. Admitting Physician: Moriah Lock M.D. Primary Care Physician: Thad Farnsworth PROGRESS NOTES DATE OF SERVICE: 04/08/2017 SUBJECTIVE Mr. Sutton is a 42-year-old white male, who was seen today and chart was reviewed and the case was discussed with the staff. He has been anxious, withdrawn, and rather seclusive to himself. Meanwhile, he has been cooperative with treatment recommendation and has been taking medications and tolerating them fairly well with no reported side effects. MENTAL STATUS EXAMINATION Middle-aged white male who was casually dressed with fair personal hygiene, appears to be in no acute distress or discomfort. He was awake and alert on interaction with intact orientation. His mood was anxious and depressed with a congruent affect. His speech was slow and restricted in content. He reports having suicidal ideation and auditory hallucinations. His insight and judgment remain slightly impaired. TREATMENT PLAN 1. We will continue on his current medications and treatment protocol as well as his detox medications. We will monitor his response to medications and make further adjustments as needed. 2. We will continue to follow up. Dictated by... Michael Connolly/sweta TD: 04/08/2017 08:24 JOB #: [id number] [facility] PROGRESS NOTES Page 1 of 1 X Moriah Lock MD PROGRESS NOTE
--- NOTE | ~2017-04-05 | PN ---
Unit #: [id number] #: [id number] Patient: MARISSA MATA [id number] [facility] [address] [place] [address] [id number] I MR#: [id number] NAME: MARISSA MATA ROOM: [facility] Age: 42 Sex: M Admission Date: 04/06/2017 : 1975 Attending Physician: Moriah Lock M.D. Admitting Physician: Moriah Lock M.D. Primary Care Physician: Thad Farnsworth PROGRESS NOTES DATE OF SERVICE 04/10/2017 DISCUSSION Mr. Mata is a 42-year-old white male who was seen today. Chart was reviewed and case was discussed with the staff. He has been anxious, withdrawn, and rather seclusive to himself. Meanwhile, he has been cooperative with the treatment recommendations and has been taking the medications and tolerating them fairly well with no reported side effects. MENTAL STATUS EXAMINATION Middle-aged white male who is casually dressed with fair personal hygiene, appears to be in no acute distress or discomfort. The patient was awake and alert with intact orientation. His mood is anxious with congruent affect. He reports having suicidal ideations and auditory hallucinations. His insight and judgment remain slightly impaired. TREATMENT PLAN 1. We will continue him on his current medications and treatment protocol. We will monitor his response to the medications and make further adjustments as needed. 2. We will continue to follow up. Dictated by... Moriah Lock M.D. IAA/bzg TD: 04/10/2017 10:25 JOB #: [id number] [facility] PROGRESS NOTES Page 1 of 1 X Moriah Lock MD X PROGRESS NOTE
--- NOTE | ~2017-04-05 | HP ---
Unit #: [id number] #: [id number] Patient: MARISSA MATA [id number] [place] [address] [id number] I MR#: [id number] NAME: MARISSA MATA ROOM: [facility] Age: 42 Sex: M Admission Date: 04/06/2017 : 1975 Attending Physician: Moriah Lock M.D. Admitting Physician: Moriah Lock M.D. Primary Care Physician: Kassie Mack A.P.R.N. HISTORY AND PHYSICAL HISTORY OF PRESENT ILLNESS Marissa is a 42 [address] old [address] [facility] because of his continued polysubstance abuse which includes alcohol and snorting methamphetamine. He has had numerous admissions to this facility for treatment of the same. PAST MEDICAL HISTORY 1. Long history of illicit substance abuse to include methamphetamine. 2. History of alcohol abuse. 3. History of withdrawal seizures. 4. High blood pressure. 5. Hepatitis C. 6. History of Reynaud. PAST SURGICAL HISTORY Amputation of a finger. ALLERGIES No known drug allergies. SOCIAL HISTORY Smokes two packs per day. Drinks a case of beer on a daily basis. Has a history of illicit drug use to include methamphetamine. FAMILY HISTORY Medically noncontributory. REVIEW OF SYSTEMS CONSTITUTIONAL: No fever or chills. HEENT: Denies any sore throat, ear pain or runny nose. CARDIOVASCULAR: Denies chest pain, irregular heart rhythm or palpitations. CHEST: Denies shortness of breath or cough. No hemoptysis. GASTROINTESTINAL: Denies nausea, vomiting, diarrhea or chronic constipation. ENDOCRINE: Denies history of increased thirst or urination. No recent significant weight loss or gain. GENITOURINARY: Denies dysuria, frequency, or hematuria. SKIN: Denies any rashes. HEMATOLOGIC: Denies history of increased bleeding or bruising. MUSCULOSKELETAL: Denies any hot, swollen joints. No generalized muscle pain. NEUROLOGIC: Denies problems with vision or speech. No frequent, severe headaches. No numbness, tingling or weakness in any extremities. Denies Unit #: [id number] #: [id number] Patient: MARISSA MATA loss of bladder or bowel control. CURRENT MEDICATIONS 1. Detox protocol 2. Zyprexa 15 mg q h.s. 3. Desyrel 100 mg q.h.s. p.r.n. PHYSICAL EXAMINATION GENERAL: Alert, well-nourished, in no apparent distress. VITAL SIGNS: Blood pressure 140/88, heart rate 80, respirations 16, temperature 98.6. WEIGHT: 205. HEIGHT: 5 foot 8 inches. SKIN: Warm and dry without rash or lesion. HEENT: Normocephalic. TMs not viewed. Oral and nasal passages clear. Conjunctivae clear. Pupils equal, round and reactive to light and accommodation. Extraocular movements intact. NECK: Supple without lymphadenopathy or thyromegaly. HEART: Regular rate and rhythm without murmur. LUNGS: Clear. ABDOMEN: Soft, nontender. : Not done. EXTREMITIES: No evidence of cyanosis, clubbing or edema. Moves all extremities without focal deficit. NEUROLOGICAL: Grossly within normal limits. Cranial Nerves: II: Visual thorpe are intact. III, IV AND : Extraocular movements are intact. Pupils are equal, round and reactive to light. V: Facial sensation is grossly normal. VII: Facial movements and expression are normal. VIII: Auditory acuity grossly intact. IX, X: Uvula is midline. Phonation is normal. XI: Patient shrugs shoulders and turns head normally. XII: Tongue protrudes in the midline. Sensory and Motor Function: Sensory and motor sensation is grossly normal. Motor: moves all extremities well. Coordination: Gait is normal. Deep Tendon Reflexes: Intact. IMPRESSION Psychiatric admission. RECOMMENDATIONS PSYCHIATRIC: Per psychiatrist. MEDICAL: I see no contraindications to participating in facility's activities. MEDICAL PROGNOSIS Good. MEDICAL CONDITION Stable. Dictated by... Pallavi Martin P.A.-C. for Aliza Reeves M.D. Unit #: [id number] #: [id number] Patient: MARISSA MTAA RACHEL/rola TD: 04/07/2017 00:32 JOB #: [id number] HISTORY AND PHYSICAL Page 1 of 1 X Pallavi Martin HISTORY AND PHYSICAL
--- NOTE | ~2017-04-05 | PN ---
Unit #: [id number] #: [id number] Patient: MARISSA SUTTON [id number] [facility] [address] [place] [address] [id number] MR#: [id number] NAME: MARISSA SUTTON [facility]OM: [facility] Age: 42 Sex: M Admission Date: 04/06/2017 : 1975 Attending Physician: Moriah Lock M.D. Admitting Physician: Moriah Lock M.D. Primary Care Physician: Thad Farnsworth PROGRESS NOTES DATE 04/09/2017 DISCUSSION Mr. Sutton is a 42-year-old white male who was seen today and chart was reviewed and case was discussed with the staff. He has been anxious, withdrawn and rather seclusive to himself. Meanwhile, he has been cooperative with treatment recommendations and has been taking medications and tolerating them fairly well with no reported side effects. MENTAL STATUS EXAMINATION Middle-aged white male who was casually dressed with fair personal hygiene and appears to be in no acute distress or discomfort. He was awake and alert on interaction with intact orientation. His mood was anxious with congruent affect. He denies any suicidal or homicidal ideation. His insight and judgement remains slightly impaired. TREATMENT PLAN 1. Will continue on his current medications and treatment protocol. Will monitor his response to the medications and make further adjustments as needed. 2. Will continue to follow up. Dictated by... Michael Connolly/eloisa TD: 04/09/2017 21:54 JOB #: [id number] Unit #: [id number] #: [id number] Patient: MARISSA SUTTON PROGRESS NOTES Page 1 of 1 X Moriah Lock MD X PROGRESS NOTE
--- NOTE | ~2017-04-05 | PN ---
Unit #: [id number] #: [id number] Patient: MARISSA SUTTON [id number] [facility] [address] [place] [address] [id number] MR#: [id number] NAME: MARISSA SUTTON ROOM: [facility] Age: 42 Sex: M Admission Date: 04/06/2017 : 1975 Attending Physician: Moriah Lock M.D. Admitting Physician: Moriah Lock M.D. Primary Care Physician: Thad Farnsworth PROGRESS NOTES DATE OF SERVICE: 04/13/2017 SUBJECTIVE Mr. Sutton is a 42-year-old white male, who was seen today and chart was reviewed and case was discussed with the staff. He appears to be doing better and appears to be showing improvement in his depression and anxiety. He has been cooperative with treatment recommendations and has been taking medications and tolerating well with no reported side effects. MENTAL STATUS EXAMINATION Middle-aged white male who was casually dressed with fair personal hygiene, appears to be in no acute distress or discomfort. He was awake and alert on interaction with intact orientation. His mood was anxious with a congruent affect. He denies any suicidal or homicidal ideation. His insight and judgment slightly impaired. TREATMENT PLAN 1. We will continue on his current medications and treatment protocol. We will consider to discharge planning tomorrow. 2. We will continue to follow up. Dictated by... Michael Connolly/edenl TD: 04/15/2017 01:51 JOB #: [id number] [facility] PROGRESS NOTES Page 1 of 1 X Moriah Lock MD X PROGRESS NOTE
--- NOTE | ~2017-04-05 | DS ---
Unit #: [id number] #: [id number] [facility]: [facility] [id number] [facility] [place] [id number] MR#: [id number] NAME: MARISSA SUTTON ROOM: [facility] Age: 42 Sex: M Admission Date: 04/06/2017 : 1975 Discharge Date: 04/14/2017 Attending Physician: Moriah Lock M.D. Primary Care Physician: Shavon FarnsworthREloisa DISCHARGE SUMMARY IDENTIFYING DATA Mr. Sutton is a 42-year-old white male, who is a resident of [place], [place], and is known to us from previous encounter and was self-referred to the hospital on a voluntary basis. DISCHARGE DIAGNOSES Psychiatric: Major depressive disorder, recurrent, moderate, without psychotic features; alcohol dependence, moderate, in acute withdrawals; and methamphetamine dependence, moderate. Medical: None. Stressors: Mild psychosocial stressors. HISTORY OF PRESENT ILLNESS Please see initial psychiatric evaluation for details. PAST PSYCHIATRIC HISTORY Please see initial psychiatric evaluation for details. PAST MEDICAL HISTORY Please see initial psychiatric evaluation for details. HOSPITAL COURSE The patient was admitted to the adult chemical dependency and psychiatric unit at [facility] and was oriented to the hospital environment. Routine p.r.n. medications were initiated, and he was started back on his home medications and medications were adjusted, and he was maintained on his Zyprexa and Zoloft and the dosage was titrated up as the patient was constantly complaining of persistent depression and psychosis. However, he was taking the medications regularly and was tolerating them fairly well and was able to show a decent and therapeutic response and was denying any further suicidal ideations, intent, or plan and was willing to continue treatment on an outpatient basis and as such, it was decided that he will be discharged home and will continue treatment on an outpatient basis. DISCHARGE MEDICATIONS Zyprexa 15 mg at bedtime for psychosis and Zoloft 200 mg at bedtime for depression. DISCHARGE CONDITION Stable. PROGNOSIS Fair. Unit #: [id number] #: [id number] Patient: MARISSA SUTTON Dictated by... Moriah Lock M.D. IAA/modl TD: 04/14/2017 17:40 JOB #: [id number] DISCHARGE SUMMARY Page 1 of 1 X Moriah Lock MD DISCHARGE SUMMARY
--- NOTE | ~2017-04-05 | PA ---
Unit #: [id number] #: [id number] Patient: MARISSA SUTTON [id number] [facility] [address] [place] [address] [id number] MR#: [id number] NAME: MARISSA SUTTON ROOM: P176 Age: 42 Sex: M Admission Date: 04/06/2017 : 1975 Date of Assessment: Attending Physician: Moriah Lock M.D. Admitting Physician: Moriah Lock M.D. Primary Care Physician: Kassie Mack A.P.R.N. PSYCHIATRIC ASSESSMENT DATE OF SERVICE 04/06/2017 IDENTIFYING DATA Mr. Sutton is a 42-year-old single white male, who is a resident of [place], [place], and he is known to us from previous encounter, who was recently discharged from my care and was self-referred back to the hospital on a voluntary basis as a transfer from [facility] Emergency Room. CHIEF COMPLAINT "Suicidal ideation." HISTORY OF PRESENT ILLNESS Mr. Sutton is a 42-year-old white male, who presented to [facility] Emergency Room reporting suicidal ideation and stated that his mother called the police because he was having suicidal thoughts with a plan to "put his head through the glass window and reports that he has been hearing voices telling him to hurt himself and then he has been snorting methamphetamine daily for the past week with the last use earlier today and reports he drinks 18 beers and half a pint of whiskey today, and upon presentation, he had a blood alcohol level of 1196. He was seen to be unkempt, disheveled, agitated, irritable, reporting command auditory hallucinations and suicidal ideations with intent or plan and as such, recommendation for an inpatient level of care for safety and stabilization was made. The patient was stepped up to the inpatient unit. SUBSTANCE ABUSE HISTORY The patient reports a history of alcohol, cannabis, cocaine and methamphetamine abuse, and currently, methamphetamine appears to be his drug of choice. PAST PSYCHIATRIC HISTORY The patient has had a history of multiple inpatient psychiatric hospitalizations at [facility], and has a history of poor compliance with outpatient treatment recommendation and is supposed to be on a combination of Zoloft and Zyprexa, but has been noncompliant with the medication. PAST MEDICAL HISTORY Hypertension, Raynaud disease, history of withdrawal seizures, history of delirium tremens. Unit #: [id number] #: [id number] Patient: MARISSA SUTTON ALLERGIES No known medication allergies. PERSONAL AND SOCIAL HISTORY A 72-tcsth[age]tmi white male, who reports that he is single, unemployed and essentially homeless, and has poor social support system. MENTAL STATUS EXAMINATION Middle-aged white male, who was casually dressed with a fair personal hygiene and appears to be in no acute distress or discomfort. He was awake and alert on interaction with intact orientation to time, place, and person. His mood was anxious and depressed with a congruent affect. His speech is slow and restricted in content. His thought processes were disorganized with some looseness of associations and flight of ideas and suicidal ideation. His insight and judgment remain significantly impaired. DIAGNOSTIC IMPRESSION Psychiatric: Major depressive disorder, recurrent, moderate, with psychotic features. Alcohol dependence, moderate, in acute withdrawal. Methamphetamine dependence, moderate. Medical: Hypertension, Raynaud disease, history of delirium tremens, history of withdrawal seizures. Stressors: Moderate psychosocial stressors. TREATMENT PLAN 1. The patient has presented with a history of substance abuse and mood disorder, and has been decompensating and will need inpatient hospitalization for detoxification, safety, and stabilization. We will start him back on his home medications, and detox protocol will be initiated as well. 2. Supportive therapy was provided to the patient. 3. Safe, structured, and nourishing environment will be provided. ESTIMATED LENGTH OF STAY 5 to 7 days. ABILITY TO HELP SELF Limited. WILLINGNESS TO HELP SELF The patient appears to be willing to help self. STRENGTHS 1. Communicative. 2. Cooperative. PROBLEMS 1. Chronic dysphoric symptoms. 2. Chronic chemical dependency. 3. Poor social support system. DISCHARGE CRITERIA This will be contingent upon the patient's ability to show resolution of his depression and anxiety and his ability to stay safe to himself, particularly after discharge from the hospital. Unit #: [id number] #: [id number] Patient: MARISSA SUTTON Dictated by... Michael Connolly/sweta TD: 04/07/2017 08:02 JOB #: [id number] PSYCHIATRIC ASSESSMENT Page 1 of 1 X Moriah Lock MD PSYCHIATRIC ASSESSMENT
--- NOTE | ~2017-04-05 | PN ---
Unit #: [id number] #: [id number] Patient: MARISSA SUTTON [id number] [facility] [address] [place] [address] [id number] MR#: [id number] NAME: MARISSA SUTTON ROOM: [facility] Age: 42 Sex: M Admission Date: 04/06/2017 : 1975 Attending Physician: Moriah Lock M.D. Admitting Physician: Moriah Lock M.D. Primary Care Physician: Thad Farnsworth PROGRESS NOTES DATE April 07, 2017 DISCUSSION Mr. Sutton is a 42-year-old white male, who was seen today and chart was reviewed and the case was discussed with the staff. He has been anxious, withdrawn, depressed, and rather seclusive to himself. Meanwhile, he has been complaining of persistent depression and anxiety, and feelings of hopelessness. Meanwhile, he has been taking the medications and tolerating them fairly well with no reported side effects. MENTAL STATUS EXAMINATION Middle-aged white male, who was casually dressed with fair personal hygiene and appears to be in no acute distress or discomfort. He was awake and alert on interaction with intact orientation. His mood is anxious with a congruent affect. He reports having suicidal ideations, and auditory hallucinations. His insight and judgment remain slightly impaired. TREATMENT PLAN 1. We will continue him on his current medications and treatment protocol, and will monitor his response to the medications, and make further adjustments as needed. 2. We will continue to followup. Dictated by... Michael Connolly/edgar TD: 04/08/2017 06:59 JOB #: [id number] Unit #: [id number] #: [id number] Patient: MARISSA SUTTON PROGRESS NOTES Page 1 of 1 X Moriah Lock MD PROGRESS NOTE
--- NOTE | ~2017-04-05 | PN ---
Unit #: [id number] #: [id number] Patient: MARISSA SUTTON [id number] [facility] [address] [place] [address] [id number] MR#: [id number] NAME: MARISSA SUTTON ROOM: [facility] Age: 42 Sex: M Admission Date: 04/06/2017 : 1975 Attending Physician: Moriah Lock M.D. Admitting Physician: Moriah Lock M.D. Primary Care Physician: Thad Farnsworth PROGRESS NOTES DATE April 11, 2017 DISCUSSION Mr. Sutton is a 42-year-old white male with substance abuse and mood disorder, who was seen today and chart was reviewed and the case was discussed with the staff. He reports persistent anxiety, and suicidal ideation, and he has been taking the medications, and tolerating them fairly well with no reported side effects. MENTAL STATUS EXAMINATION Middle-aged white male, who was casually dressed with fair personal hygiene and appears to be in no acute distress or discomfort. He was awake and alert on interaction with intact orientation. His mood is anxious with a congruent affect. He denies any suicidal or homicidal ideations, and also denies any auditory or visual hallucinations. His insight and judgment remain slightly impaired. TREATMENT PLAN 1. We will continue him on his current medications and treatment protocol, and will monitor his response to the medications, and make further adjustments as needed. 2. We will continue to followup. Dictated by... Michael Connolly/edgar TD: 04/13/2017 09:21 JOB #: [id number] Unit #: [id number] #: [id number] Patient: MARISSA SUTTON PROGRESS NOTES Page 1 of 1 X Moriah Lock MD X PROGRESS NOTE
--- NOTE | ~2017-04-05 | PN ---
Unit #: [id number] #: [id number] Patient: MARISSA SUTTON [id number] [facility] [address] [place] [address] [id number] MR#: [id number] NAME: MARISSA SUTTON ROOM: [facility] Age: 42 Sex: M Admission Date: 04/06/2017 : 1975 Attending Physician: Moriah Lock M.D. Admitting Physician: Moriah Lock M.D. Primary Care Physician: Thad Farnsworth PROGRESS NOTES DATE OF SERVICE: 04/12/2017 SUBJECTIVE Mr. Sutton is a 42-year-old white male, who was seen today and chart was reviewed and case was discussed with the staff. He has been anxious, withdrawn, depressed, though has been calm and cooperative with treatment recommendations and has been taking medications and tolerating them fairly well with no reported side effects. MENTAL STATUS EXAMINATION Young white male who was casually dressed with fair personal hygiene, appears to be in no acute distress or discomfort. He was awake and alert with intact orientation. His mood was anxious and depressed with a congruent affect. He reports having suicidal ideation, but denies any homicidal ideations. His insight and judgment remain slightly impaired. TREATMENT PLAN 1. We will continue on his current treatment protocol. We will monitor his response and make further adjustments as needed. 2. We will continue to follow up. Dictated by... Michael Connolly/edenl TD: 04/14/2017 23:51 JOB #: [id number] SARITHA PROGRESS NOTES Page 1 of 1 X Moriah Lock MD PROGRESS NOTE
[~2017-04-05 20:00] MED LIST changes: +ZYPREXA10 MG PO
[2017-04-07 09:40] LABS: BASOPHIL% 0.7 % (0-2.5); EOSINOPHIL# 0.3 X10e3 (0-0.7); EOSINOPHIL% 5.1 % (0.0-7.0); HEMOGLOBIN 14.6 gm/dL (13.0-16.0); LYMPHOCYTE# 2.3 X10e3 (1.0-3.5); MEAN CELL VOLUME 94.1 FL (83-96); MEAN CORPUSCULAR HEMOGLOBIN 31.9 PG (28-34); MEAN CORPUSCULAR HGB CONC 33.9 g/dL (30-36); MEAN PLATELET VOLUME 6.6 FL (6.5-11.5); MONOCYTE# 0.7 X10e3 (0-1.0); MONOCYTE% 10.6 % (3.0-12.0); NEUTROPHIL# 3.1 X10e3 (1.5-7.1); NEUTROPHIL% 47.6 % (40-75); PLATELET COUNT 326 X10e3 (140-420); RED BLOOD COUNT 4.58 X10e (3.90-5.60); RED CELL DISTRIBUTION WIDTH 15.2 % (11.0-15.5); WHITE BLOOD COUNT 6.5 X10e3 (4.0-10.5)
[2017-04-07 09:50] LABS: DIFF IND NO
[2017-04-07 09:55] LABS: ALBUMIN SERUM 3.9 g/dL (3.5-5.0); BILIRUBIN,TOTAL 1.1 mg/dL (0.2-2.0); BUN/CREATININE RATIO 21.25; CALCIUM SERUM 8.8 mg/dL (8.4-10.2); CREATININE SERUM 0.8 mg/dL (0.6-1.4); GLOM FILT RATE Estimated 111.8 mL/min (>60); POTASSIUM 4.3 mmol/L (3.5-5.1); PROTEIN TOTAL SERUM 6.5 g/dL (6.0-8.3)
[2017-04-08 09:42] LABS: URINE APPEARANCE CLEAR; URINE BILIRUBIN NEG (NEG); URINE BLOOD NEG (NEG); URINE COLOR DK YELLOW; URINE GLUCOSE NEG (NEG); URINE KETONE NEG (NEG); URINE LEUKOCYTE ESTERASE NEG (NEG); URINE NITRATE NEG (NEG); URINE PH 6.5 (5-8); URINE PROTEIN NEG (NEG); URINE SPECIFIC GRAVITY 1.023 (1.003-1.035)
[2017-04-08 10:04] LABS: AMPHETAMINE POS (NEG); BARBITURATES NEG (NEG); BENZODIAZEPINES POS (NEG); COCAINE NEG (NEG); MARIJUANA POS (NEG); OPIATES NEG (NEG); TRICYCLIC ANTIDEPRESSANTS NEG (NEG); U METHADONE NEG (NEG)
== END 2017-04-14 09:10 | DRG 885 ==
LOC: P1E 04-06 05:03
PROVIDERS: Psychiatry & Neurology Psychiatry
PROC: HZ2ZZZZ Detoxification Services for Substance Abuse Treatment (ICD-10-PCS; principal; 2017-04-05)
DX: F33.3 Major depressive disorder, recurrent, severe with psychotic symptoms (principal); R45.851 Suicidal ideations; F15.20 Other stimulant dependence, uncomplicated; F10.239 Alcohol dependence with withdrawal, unspecified; I10 Essential (primary) hypertension; B19.20 Unspecified viral hepatitis C without hepatic coma; F17.200 Nicotine dependence, unspecified, uncomplicated
CPT/HCPCS: 80048; 80053; 80076; 80307; 81003; 85025; G0480